=== PATIENT | male | born 1995 | race Asian ===

== ENCOUNTER 2017-01-04 22:58 | Emergency (ER) | payer OTHER ==
[~2017-01-04] VITALS: Ht 167.6 cm; Wt 69.4 kg
[2017-01-04 23:03] VITALS: TEMP 37.3; Ht 167.6 cm; Wt 69.4 kg
[2017-01-04] MEDS ORDERED: KETOROLAC TROMETHAMINE 30 MG/ML VIAL IV STA (23:26)
--- NOTE | 2017-01-04 23:29 | EMERGENCY ROOM VISIT NOTE ---
History Report prepared by Darrel: Jori Stack Under the Supervision of: Dr. Becca Baker D.O. First contact with patient: 23:05 Chief Complaint: ILLNESS Stated Complaint: HEADACHES/NECK/BACK PAIN,WORRIED ABOUT MENEGITIS History of Present Illness The patient is a 21 year old male who presents to the Emergency Room with complaints of "stiff" neck pain that began this morning. The patient rates his pain a 5/10 in severity. The patient travelled to [place] this weekend. He states that on his way back home today, he began to experience a headache with sore throat. He thought that it may have been due to his lack of sleep. However, his symptoms then worsened to include neck pain, a fever, joint pain, and dull upper and lower back pain. The patient denies any recent trauma, cough, nausea, or vomiting. The patent's pain worsens with lying his head back and putting his chin to his chest. He has not received a flu shot. Source of History: patient Onset: this morning Position: neck Symptom Intensity: 5/10 Quality: ache Timing: worsening Modifying Factors (Worsening): movement (superior and inferior head movement ) Associated Symptoms: + back pain, + fevers, + headache, No nausea, No vomiting Review of Systems See HPI for pertinent positives & negatives. A total of 10 systems reviewed and were otherwise negative. Past Medical & Surgical Medical Problems: (1) No Known Active Medical Problems Family History Diabetes mellitus Hypertension Social History Smoking Status: Current Some Day Smoker Alcohol Use: occasionally Drug Use: none Marital Status: single Housing Status: lives with family, lives with roommate Occupation Status: [employer] student Current/Historical Medications No Active Prescriptions or Reported Meds Allergies Coded Allergies: No Known Allergies (Unverified , 01/04/17) Physical Exam Vital Signs Date Time Temp Pulse Resp B/P Pulse Ox O2 Delivery O2 Flow Rate FiO2 01/05/17 02:29 78 20 119/65 98 01/05/17 00:56 70 124/71 98 Room Air 01/04/17 23:03 37.3 124 16 134/77 99 Room Air Physical Exam HEENT: Head - normocephalic and atraumatic Pupils are equal, round, and reactive to light. Extraocular eye muscles are intact, and sclera are anicteric. Nose - moist nasal mucosa without discharge. Mouth - moist buccal mucosa. Oropharynx is nonerythematous. Exudate on his edematous tonsils. Neck: Supple; no JVD, nuchal rigidity. Anterior cervical lymphadenopathy. Heart: Regular rate and rhythm. There is a normal S1 and S2 with no murmurs, clicks, or gallops appreciated. Lungs: Clear to auscultation bilaterally with no wheezes, rales, or rhonchi. Abdomen: Soft, completely nontender, nondistended, with good bowel sounds. There are no palpable pulsatile masses or hepatosplenomegaly. There is no guarding, rigidity, or rebound noted. Extremities: No evidence of cyanosis, clubbing, or edema. There are easily palpable peripheral pulses. Skin: warm and dry with good turgor and no rashes. Medical Decision & Procedures Laboratory Results 01/04/17 23:45 Red Blood Count 5.44, Mean Corpuscular Volume 83.5, Mean Corpuscular Hemoglobin 30.1, Mean Corpuscular Hemoglobin Concent 36.1, Mean Platelet Volume 10.1, Neutrophils (%) (Auto) 83.6, Lymphocytes (%) (Auto) 9.9, Monocytes (%) (Auto) 5.8, Eosinophils (%) (Auto) 0.3, Basophils (%) (Auto) 0.2, Neutrophils # (Auto) 10.43, Lymphocytes # (Auto) 1.23, Monocytes # (Auto) 0.72, Eosinophils # (Auto) 0.04, Basophils # (Auto) 0.02 01/04/17 23:45 01/05/17 00:55 Test 01/04/17 23:45 01/05/17 00:55 White Blood Count 12.46 K/uL (4.8-10.8) Red Blood Count 5.44 M/uL (4.7-6.1) Hemoglobin 16.4 g/dL (14.0-18.0) Hematocrit 45.4 % (42-52) Mean Corpuscular Volume 83.5 fL (80-100) Mean Corpuscular Hemoglobin 30.1 pg (25-34) Mean Corpuscular Hemoglobin Concent 36.1 g/dl (32-36) Platelet Count 233 K/uL (130-400) Mean Platelet Volume 10.1 fL (7.4-10.4) Neutrophils (%) (Auto) 83.6 % Lymphocytes (%) (Auto) 9.9 % Monocytes (%) (Auto) 5.8 % Eosinophils (%) (Auto) 0.3 % Basophils (%) (Auto) 0.2 % Neutrophils # (Auto) 10.43 K/uL (1.4-6.5) Lymphocytes # (Auto) 1.23 K/uL (1.2-3.4) Monocytes # (Auto) 0.72 K/uL (0.11-0.59) Eosinophils # (Auto) 0.04 K/uL (0-0.5) Basophils # (Auto) 0.02 K/uL (0-0.2) RDW Standard Deviation 41.7 fL (36.4-46.3) RDW Coefficient of Variation 13.7 % (11.5-14.5) Immature Granulocyte % (Auto) 0.2 % Immature Granulocyte # (Auto) 0.02 K/uL (0.00-0.02) Anion Gap 10.0 mmol/L (3-11) Est Creatinine Clear Calc Drug Dose 139.2 ml/min Estimated GFR () > 150.0 Estimated GFR (Non- 131.6 BUN/Creatinine Ratio 8.8 (10-20) Calcium Level 9.9 mg/dl (8.5-10.1) Influenza Type A Antigen Neg for Influ A (NEG) Influenza Type B Antigen Neg for Influ B (NEG) Monoscreen NEG (NEG) Laboratory results per my review. Medications Administered Medications (Trade) Dose Ordered Sig/Elodia Route Start Time Stop Time Status Last Admin Dose Admin Miscellaneous Information (Nursing Verbal Med Order) 1 ea ONE ONCE N/A 01/05/17 01:30 01/05/17 01:32 DC 01/05/17 01:30 1 EA Procedure Toradol Inj 60 mg IM Nursing Verbal Med Order ED Course 2305: Past medical records reviewed. The patient was evaluated in room A12. A complete history and physical exam was performed. Labs are drawn as above. They were able to establish an IV line. 0124: Toradol Inj 60 mg IM 0130: Nursing Verbal Med Order for above 0221: The patient is feeling much better. 0235: Upon reevaluation, the patient is resting. I discussed findings and results with him. He verbalized agreement of the treatment plan. He was discharged home. Medical Decision The patient is a 21 year old male who presents to the ED with stiff neck pain. Differential diagnosis includes meningitis, influenza, strep pharyngitis, and mono. Laboratory results show: mono negative, influenza negative. This is a 21-year-old male patient who presents to ED with some sore throat and neck stiffness. The patient had some exudate on his tonsils and therefore a strep test was performed. This was negative. A mono spot test was performed and was negative. The patient received Toradol and had significant to complete relief of the discomfort in his neck. He had no actual neck stiffness or signs of meningismus. He simply describes some pain in his neck with movement. The patient also had relief of his arthralgias. Patient had only a mild leukocytosis. He was afebrile. I've asked the patient to follow-up with student health services or here in the emergency department if symptoms were persistent. Impression Primary Impression: Sore throat Additional Impression: Joint pain Scribe Attestation The scribe's documentation has been prepared under my direction and personally reviewed by me in its entirety. I confirm that the note above accurately reflects all work, treatment, procedures, and medical decision making performed by me. Departure Information Dispostion Home / Self-Care Prescriptions No Active Prescriptions or Reported Meds Referrals [facility] (PCP) Forms HOME CARE DOCUMENTATION FORM, IMPORTANT VISIT INFORMATION, WORK / SCHOOL INSTRUCTIONS Patient Instructions ED Viral Syndrome, [facility] Additional Instructions Rest. Take plenty of clear liquids Take motrin - 600mg every 6 hours with food for pain. Follow up here or in the student health center for continued symptoms Problem Qualifiers
[2017-01-05 00:09] LABS: BASO % 0.2 %; BASO ABS # 0.02 K/uL (0-0.2); COMPLETE YES; EOS % 0.3 %; HEMATOCRIT 45.4 % (42-52); IG% 0.2 %; LYMPH % 9.9 %; LYMPH ABS # 1.23 K/uL (1.2-3.4); MEAN CELL VOLUME 83.5 fL (80-100); MEAN CORPUSCULAR HEMOGLOBIN 30.1 pg (25-34); MEAN CORPUSCULAR HGB CONC 36.1 g/dl (32-36); MEAN PLATELET VOLUME 10.1 fL (7.4-10.4); MONO % 5.8 %; NEUT % 83.6 %; PLATELET COUNT 233 K/uL (130-400); RED BLOOD COUNT 5.44 M/uL (4.7-6.1); WHITE BLOOD COUNT 12.46 K/uL (4.8-10.8)
[2017-01-05 00:31] LABS: BLOOD UREA NITROGEN 7 mg/dl (7-18); BUN/CREATININE RATIO 8.8 (10-20); CALCIUM 9.9 mg/dl (8.5-10.1); CARBON DIOXIDE 30 mmol/L (21-32); CHLORIDE 103 mmol/L (98-107); CREATININE 0.77 mg/dl (0.60-1.40); GLUCOSE 97 mg/dl (70-99); SODIUM 143 mmol/L (136-145)
[2017-01-05] MEDS ORDERED: KETOROLAC TROMETHAMINE 60 MG/2 ML VIAL ONE (01:24)
[2017-01-05] MEDS ORDERED: NURSING VERBAL MED ORDER ONE (01:30)
[2017-01-05 02:29] VITALS: BP 119/65; PULSE 78; O2SAT 98
== END 2017-01-05 02:30 | disposition home or self-care (01) ==
LOC: C.EDB 23:01 → C.EDA 01-05 02:30
DX: J02.9 Acute pharyngitis, unspecified (principal); M25.50 Pain in unspecified joint; F17.210 Nicotine dependence, cigarettes, uncomplicated